=== PATIENT | female | born 1945 | race Caucasian/White ===

== ENCOUNTER → 2023-11-29 18:36 | Outpatient (CLI) | payer OTHER, SELFPAY ==
--- NOTE | 2023-11-29 18:44 | DI.MRI.S_ITS ---
PROCEDURE: MR WRIST RT WO CON INDICATIONS: CLOSED FX OF RT WRIST TECHNIQUE: Noncontrast coronal proton density fast spin echo and T2 fast spin echo with fat saturation; coronal 3-D gradient echo, axial T1 spin echo and T2 fast spin echo with fat saturation, sagittal T1 spin echo through the wrist. COMPARISON: [facility], CR, XR WRIST 3+ VIEWS RIGHT, 11/16/2023, 8:53. [facility], CR, XR WRIST 3+ VIEWS RIGHT, 11/24/2023, 10:47. FINDINGS: Image quality: Images are mildly degraded by patient motion on multiple pulse sequences. Diagnostic information is obtained. Bones and cartilage: There is a small minimally displaced fracture of the radial styloid extending into the radioscaphoid joint without significant step-off seen at the articular surface. Mild surrounding osseous edema is present. There is also edema and a suspected incomplete fracture line at the dorsal aspect of the distal radius extending to Rita's tubercle. No communication with the articular surface is seen. Mild osseous edema is seen in the proximal ulnar aspect of the lunate surrounding small [id number] cystic foci. Scattered foci of [id number] signal are seen throughout the carpal bones that may represent degenerative cystic changes or osseous erosions. And severe degenerative changes are seen at the 1st carpometacarpal joint. There is osseous edema throughout the 5th metacarpal base and shaft without a definite fracture line seen. Hamate hook is intact. Carpal ligaments: Suspected degenerative perforation of the central membranous portion of the scapholunate ligament. The dorsal and volar bands of the ligament are grossly intact without widening of the scapholunate interval. Lunotriquetral ligament appears to be intact. On sagittal images, the pisohamate ligament appears intact. Triangular fibrocartilage complex: Partial tearing of the triangular fibrocartilage near the ulnar attachments within adjacent 4 mm cyst. The fibrocartilage disc appears to be intact. Tendons and soft tissues: The carpal tunnel structures appear normal, including the median nerve. The ulnar nerve appears normal within Guyon's canal. Suspected partial intrasubstance tearing of the abductor pollicis longus tendon near its insertion superimposed on chronic tendinosis. Mild tenosynovitis of the 1st extensor compartment tendons. There is also mild tenosynovitis of the extensor pollicis longus tendon. Mild extensor carpi ulnaris tendinosis. IMPRESSION: 1. Small minimally displaced intra-articular fracture of the radial styloid without significant step-off at the articular surface. 2. Additional nondisplaced incomplete fracture at the dorsal aspect of the radius extending to Rita's tubercle without articular surface involvement. 3. Nonspecific [id number] signal in the 5th metacarpal base and shaft, possibly related to an osseous contusion versus other process. No fracture line is seen. 4. Scattered foci of [id number]-[id number] signal throughout the wrist may represent degenerative subchondral cystic changes although osseous erosions are not excluded. Recommend correlation with clinical findings and possible serologies to exclude an underlying inflammatory arthritis. 5. Severe 1st carpometacarpal osteoarthrosis. 6. Partial intrasubstance tearing of the abductor pollicis longus tendon near its distal insertion superimposed on chronic tendinosis and mild de Quervain tenosynovitis involving the 1st extensor compartment tendons. Mild tenosynovitis of the extensor pollicis longus tendon. Mild extensor carpi ulnaris tendinosis. 7. Partial tearing at the ulnar attachments of the triangular fibrocartilage. 8. Suspected degenerative perforation of the central membranous portion of the scapholunate ligament without disruption of the dorsal or volar bands. Approved by: Anibal Fritz M.D. on 11/30/2023 at 10:43
== END ==
LOC: MRI 18:41
PROVIDERS: PCP Physician Assistant; Referring Provider Physician Assistant; Visit Provider Physician Assistant
DX: S52.514A Nondisplaced fracture of right radial styloid process, initial encounter for closed fracture (principal); M18.11 Unilateral primary osteoarthritis of first carpometacarpal joint, right hand; S66.811A Strain of other specified muscles, fascia and tendons at wrist and hand level, right hand, initial encounter; S63.8X1A Sprain of other part of right wrist and hand, initial encounter; M65.4 Radial styloid tenosynovitis [de Quervain]; X58.XXXA Exposure to other specified factors, initial encounter
CPT/HCPCS: 73221